=== PATIENT | male | born 1975 | race Two or more races ===

== ENCOUNTER 2023-12-08 17:43 | Emergency (ER) | payer OTHER ==
[~2023-12-08] VITALS: Ht 175.3 cm; Wt 100.0 kg
[2023-12-08 18:49] VITALS: BP 138/88; PULSE 81; RESP 16; TEMP 98.2; O2SAT 96
== END 2023-12-08 20:20 | disposition home or self-care (01) ==
LOC: ER 17:43
DX: T81.33XA Disruption of traumatic injury wound repair, initial encounter (principal); X58.XXXA Exposure to other specified factors, initial encounter; Y93.89 Activity, other specified; Y92.89 Other specified places as the place of occurrence of the external cause; Y99.8 Other external cause status
CPT/HCPCS: 12001